=== PATIENT | female | born 1935 | race Caucasian/White ===

== ENCOUNTER → 2017-02-15 | Outpatient (CLI) | payer OTHER, MEDICARE | LOC: FCPNEURO 20:00 | PROVIDERS: ATTEND Psychiatry & Neurology Sleep Medicine | DX: G47.30 Sleep apnea, unspecified (principal) ==

== ENCOUNTER → 2017-07-25 | Outpatient (CLI) | payer OTHER, MEDICARE | LOC: FCPNEURO 20:00 | PROVIDERS: ATTEND Psychiatry & Neurology Sleep Medicine | DX: G47.33 Obstructive sleep apnea (adult) (pediatric) (principal); G47.61 Periodic limb movement disorder ==

== ENCOUNTER 2018-02-13 16:00 | Emergency (ER) | payer OTHER, MEDICARE ==
--- NOTE | 2018-02-13 16:15 | EDPHY ---
H & P Time Seen by Provider: 02/13/18 16:03 HPI/ROS: CHIEF COMPLAINT: Fall HISTORY OF PRESENT ILLNESS: Patient is a 82-year-old female who comes to the emergency department after a mechanical fall. Her friend dropped her off at the store. She tripped in the sidewalk and fell and hit her chin on the ground. Witnesses say She did not lose consciousness but is slightly confused. She has a laceration on her lower lip on the mucosal aspect. She has an abrasion to her chin but no laceration. She denies jaw pain. She denies headache. She denies neck pain. She denies injuries to her extremities. She was ambulatory at the scene. She has a history of type 2 diabetes. She cannot remember her medications. Severity: Moderate Modifying factors: None REVIEW OF SYSTEMS: Constitutional: denies: chills, fever, recent illness, recent injury EENTM: See HPI, denies: blurred vision, double vision, nose congestion Respiratory: denies: cough, shortness of breath Cardiac: denies: chest pain, irregular heart rate, lightheadedness, palpitations Gastrointestinal/Abdominal: denies: abdominal pain, diarrhea, nausea, vomiting, blood streaked stools Genitourinary: denies: dysuria, frequency, hematuria, pain Musculoskeletal: denies: joint pain, muscle pain Skin: See HPI Neurological: denies: headache, numbness, paresthesia, tingling, dizziness, weakness Hematologic/Lymphatic: denies: blood clots, easy bleeding, easy bruising Immunologic/allergic: denies: HIV/AIDS, transplant 10 systems reviewed and negative except as noted EXAM: GENERAL: Well-appearing, well-nourished and in no acute distress. HEAD: Atraumatic, normocephalic. EYES: Pupils equal round and reactive to light, extraocular movements intact, sclera anicteric, conjunctiva are normal. ENT: Laceration 2 cm to mucosal aspect of lower lip. Not through and through. TMs normal, nares patent, oropharynx clear without exudates. Moist mucous membranes. No malocclusion. No missing teeth. The patient does have partial dentures. NECK: Normal range of motion, supple without lymphadenopathy or JVD. LUNGS: Breath sounds clear to auscultation bilaterally and equal. No wheezes rales or rhonchi. HEART: Regular rate and rhythm without murmurs, rubs or gallops. ABDOMEN: Soft, nontender, normoactive bowel sounds. No guarding, no rebound. No masses appreciated. BACK: No CVA tenderness, no spinal tenderness, step-offs or deformities EXTREMITIES: Normal range of motion, no pitting or edema. No clubbing or cyanosis. NEUROLOGICAL: Cranial nerves II through XII grossly intact. Normal speech, normal gait. 5/5 strength, normal movement in all extremities, normal sensation , normal reflexes PSYCH: Normal mood, normal affect. SKIN: Abrasion to chin, no laceration Source: Patient, EMS Exam Limitations: No limitations - Medical/Surgical History Hx Asthma: No Hx Chronic Respiratory Disease: No Hx Diabetes: No Hx Cardiac Disease: No Hx Renal Disease: No Hx Cirrhosis: No Hx Alcoholism: No Hx HIV/AIDS: No Hx Splenectomy or Spleen Trauma: No - Family History Significant Family History: No pertinent family hx - Social History Smoking Status: Never smoked Alcohol Use: Sober Drug Use: None Constitutional: Initial Vital Signs Temperature (C) 36.7 C 02/13/18 16:11 Heart Rate 73 02/13/18 16:11 Respiratory Rate 16 02/13/18 16:11 Blood Pressure 140/74 H 02/13/18 16:11 O2 Sat (%) 92 02/13/18 16:11 O2 Delivery Mode Room Air Allergies/Adverse Reactions: No Known Allergies Allergy (Unverified 02/13/18 16:10) Home Medications: Medication Instructions Recorded Ambien 02/13/18 Insulin Syringe 02/13/18 Medical Decision Making - Diagnostics Imaging Results: Imaging Impressions Cervical Spine CT 02/13/18 16:09 Impression: 1. No acute, displaced cervical spine fracture. 2. If the patient has persistent pain or neurologic deficits, consider cervical spine MRI. Noam Nolasco was notified of these findings by telephone at 4:51 PM on [address] 02/13/18 16:09 Impression: No intracranial hemorrhage or calvarial fracture. Noam Nolasco was notified of these findings by telephone at 4:51 PM on 2017 Imaging: Discussed imaging studies w/ call center recruiter Radiologist Procedures: Procedure: Laceration repair. Verbal consent was obtained from the patient. The 2 cm lip laceration was anesthetized with 1% lidocaine locally infiltrated. The wound was irrigated copiously according to protocol, draped and explored to its base. It was approximately 1/2 cm deep, not through and through. There were no deep structures involved. No tendon, nerve, or vascular injury was identified when explored through full range of motion. No foreign body was identified. The wound was repaired with 5.0 fast-absorbing gut, 2 sutures loosely approximated, interrupted. The wound repair was simple without wound margin revisement or multiple flap alignment. The procedure was performed by myself. A dressing was then placed with sterile gauze. ED Course/Re-evaluation: Patient's head CT and neck CT are reassuring. She tolerated lip laceration repair. No visible dental or jaw injuries pain she is eager to go home before gets dark. We discussed suture care and follow-up. Differential Diagnosis: Partial list of the Differential diagnosis considered include but were not limited to; lip laceration, abrasion, fall, concussion and although unlikely based on the history and physical exam, I also considered head injury, neck injury. I discussed these differential diagnoses and the plan with the patient as well as the usual and expected course. The patient understands that the diagnosis is provisional and that in medicine we are not always correct and that further workup is often warranted. Usual and customary warnings were given. All of the patient's questions were answered. The patient was instructed to return to the emergency department should the symptoms at all worsen or return, otherwise to followup with the physician as we discussed. - Data Points Laboratory Results: Laboratory Results 02/13/18 16:20 02/13/18 16:20 02/13/18 02/13/18 02/13/18 16:20 16:20 16:20 WBC 9.78 10^3/uL H 10^3/uL (3.80-9.50) RBC 5.25 10^6/uL 10^6/uL (4.18-5.33) Hgb 12.8 g/dL g/dL (12.6-16.3) Hct 40.7 % % (38.0-47.0) MCV 77.5 fL L fL (81.5-99.8) MCH 24.4 pg L pg (27.9-34.1) MCHC 31.4 g/dL L g/dL (32.4-36.7) RDW 19.7 % H % (11.5-15.2) Plt Count 289 10^3/uL 10^3/uL (150-400) MPV 10.1 fL fL (8.7-11.7) Neut % (Auto) 48.9 % % (39.3-74.2) Lymph % (Auto) 37.2 % % (15.0-45.0) [place] % (Auto) 9.8 % % (4.5-13.0) Eos % (Auto) 3.1 % % (0.6-7.6) Baso % (Auto) 0.7 % % (0.3-1.7) Nucleat RBC Rel Count 0.0 % % (0.0-0.2) Absolute Neuts (auto) 4.78 10^3/uL 10^3/uL (1.70-6.50) Absolute Lymphs (auto) 3.64 10^3/uL H 10^3/uL (1.00-3.00) Absolute Monos (auto) 0.96 10^3/uL H 10^3/uL (0.30-0.80) Absolute Eos (auto) 0.30 10^3/uL 10^3/uL (0.03-0.40) Absolute Basos (auto) 0.07 10^3/uL 10^3/uL (0.02-0.10) Absolute Nucleated RBC 0.00 10^3/uL 10^3/uL (0-0.01) Immature Gran % 0.3 % % (0.0-1.1) Immature Gran # 0.03 10^3/uL 10^3/uL (0.00-0.10) PT 14.1 SEC SEC (12.0-15.0) INR 1.07 (0.83-1.16) APTT 29.1 SEC SEC (23.0-38.0) Sodium 141 mEq/L mEq/L (135-145) Potassium 4.4 mEq/L mEq/L (3.5-5.2) Chloride 104 mEq/L mEq/L (97-110) Carbon Dioxide 25 mEq/l mEq/l (22-31) Anion Gap 12 mEq/L mEq/L (6-14) BUN 28 mg/dL H mg/dL (7-23) Creatinine 1.2 mg/dL H mg/dL (0.6-1.0) Estimated GFR 43 Glucose 126 mg/dL H mg/dL (70-100) Calcium 9.9 mg/dL mg/dL (8.5-10.4) Ethyl Alcohol < 10 mg/dL mg/dL (0-10) Departure - Departure Disposition: Home, Routine, Self-Care Clinical Impression: Abrasion Concussion Qualifiers: Encounter type: initial encounter Loss of consciousness presence/duration: without LOC Qualified Code(s): S06.0X0A - Concussion without loss of consciousness, initial encounter Lip laceration Qualifiers: Encounter type: initial encounter Qualified Code(s): S01.511A - Laceration without foreign body of lip, initial encounter Condition: Fair Instructions: Laceration (DC), Concussion (ED) Additional Instructions: You have 2 stitches in your lip that should dissolve over the next 3-4 days. If they do not return to have them removed. Referrals: Patient,NotPresent [Unknown] - As per Instructions
[2018-02-13 16:24] LABS: PLATELET COUNT 289 10^3/uL (150-400)
[2018-02-13 16:34] LABS: INR 1.07 (0.83-1.16); PROTIME(PATIENT) 14.1 SEC (12.0-15.0)
[2018-02-13 17:35] VITALS: BP 150/81
== END 2018-02-13 17:35 | disposition home or self-care (01) ==
LOC: EDUNIT#
PROC: 0CQ1XZZ Repair Lower Lip, External Approach (ICD-10-PCS; principal; 2018-02-13)
DX: S01.511A Laceration without foreign body of lip, initial encounter (principal); S00.81XA Abrasion of other part of head, initial encounter; W01.0XXA Fall on same level from slipping, tripping and stumbling without subsequent striking against object, initial encounter; Y92.480 Sidewalk as the place of occurrence of the external cause; Y93.9 Activity, unspecified; Y99.9 Unspecified external cause status
CPT/HCPCS: G0480

== ENCOUNTER → 2018-06-10 | Outpatient (CLI) | payer OTHER, MEDICARE | LOC: BHFA 09:30 | PROVIDERS: ATTEND Internal Medicine Cardiovascular Disease | DX: R94.31 Abnormal electrocardiogram [ECG] [EKG] (principal); N18.3 Chronic kidney disease, stage 3 (moderate); I50.30 Unspecified diastolic (congestive) heart failure | CPT/HCPCS: 78452; 93017; A9500; J2785 ==

== ENCOUNTER 2018-08-05 08:51 | Day surgery (SDC) | payer OTHER, MEDICARE ==
[2018-08-05] MEDS ORDERED: FAMOTIDINE 20 MG TAB PO ONE (08:57)
[2018-08-05] MEDS ORDERED: ASPIRIN EC 325 MG TAB PO ONE (08:57)
[2018-08-05] MEDS ORDERED: DIAZEPAM 5 MG TAB PO ONE (08:57)
[2018-08-05] MEDS ORDERED: NS 1,000 ML IV ONE (08:57)
[2018-08-05] MEDS ORDERED: diphenhydrAMINE 25 MG CAP PO ONE (08:57)
--- NOTE | 2018-08-05 09:33 | PDGENHP ---
History & Physical Chief Complaint: Newly diagnosed cardiomyopathy. History of Present Illness: Newly diagnosed cardiomyopathy without overt symptoms of heart failure. Noninvasive assessment indicates the possibility of significant ischemia/infarction in the territory of the RCA. Pertinent Past, Social, Family History: Metastatic breast cancer currently on Herceptin. Chronic renal insufficiency. Relevant Physical Exam: Alert and oriented x3, clear lung araiza bilaterally, regular rate and rhythm without murmurs gallops or rubs, 2+ radial artery pulses bilaterally, 2+ dorsal pedal pulses Cardiorespiratory Assessment: Stable for right and left heart catheterization.
[2018-08-05 09:43] LABS: PLATELET COUNT 210 10^3/uL (150-400)
[2018-08-05 09:55] LABS: INR 1.15 (0.83-1.16); PROTIME(PATIENT) 14.2 SEC (12.0-15.0)
[2018-08-05] MEDS ORDERED: MIDAZOLAM 2 MG/2 ML VIAL ONE (10:06)
[2018-08-05] MEDS ORDERED: fentaNYL 100 MCG/2 ML INJ ONE (10:06)
[2018-08-05] MEDS ORDERED: IOPAMIDOL (ISOVUE 370) 100 ML BTL IV ONE (10:07)
[2018-08-05] MEDS ORDERED: LIDOCAINE 1% 5 ML SDV ONE (10:07)
--- NOTE | 2018-08-05 11:30 | PDDXCAT ---
Diagnostic Cath Note - . Date: 08/05/18 Engineering Inspection Assistant: Jo Indication: other (Newly diagnosed cardiomyopathy. Abnormal stress MPI indicating a large inferior fixed defect.) - Procedure Access: right groin Procedure: left heart catheterization, coronary angiography, left ventriculogram , right heart catheterization - Materials Left Heart Cath size: 6F Left Heart Cath materials: standard multipack (JL4, JR4, pigtail) Right Heart Cath size: 7F Right Heart Cath materials: PWP catheter - Findings-Left Heart Catheterization LM: Large caliber vessel. Appropriate bifurcation into the LAD and circumflex. Angiographically free of disease. LAD: Large caliber transapical vessel. 3 diagonal branches identified. The 2nd diagonal is small and surgically insignificant. There is ostial tapering of the 3rd diagonal branch to about 30-40%. In the proximal LAD there is a 30% irregular lesion. LCX: Large caliber vessel. There is a small 1st obtuse marginal branch, a large 1st posterolateral branch and a small 2nd posterolateral branch. Luminal irregularities with no obstructive lesions are noted. RCA: Large caliber dominant vessel. The PDA and 2 posterolateral branches are noted. There are luminal irregularities with no obstructive lesions. LVEF: 40-45% with global hypokinesis. - Findings-Right Heart Catheterization RA: 3 mmHg. RV: 33/-3/1 mmHg. PA: 33/6/18 mmHg. 71% saturation. PAOP: 3 mmHg. Complications: None. Estimated blood loss: <50ml Closure method: Angioseal Assessment: 1. Minimal nonobstructive CAD as described above. 2. 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 3. Right heart catheterization indicating volume depletion. Plan: Maximal medical therapy in light of the nonischemic cardiomyopathy. Discontinuation of Herceptin her attending normalization of ejection fraction. Intervention: None.
--- NOTE | 2018-08-07 11:53 | CPEKG ---
Test Reason : OPEN Blood Pressure : / mmHG Vent. Rate : 083 BPM Atrial Rate : 083 BPM P-R Int : 162 ms QRS Dur : 084 ms QT Int : 398 ms P-R-T Axes : 071 -39 024 degrees QTc Int : 468 ms Sinus rhythm Left axis deviation Left ventricular hypertrophy Confirmed by Salty Bond ([id number]) on 08/07/2018 11:53:21 AM Referred By: Marco Osorio Confirmed By:Salty Bond
== END 2018-08-05 15:40 | disposition home or self-care (01) ==
LOC: FCATH 08:51
PROVIDERS: ATTEND Internal Medicine Cardiovascular Disease
DX: I42.9 Cardiomyopathy, unspecified (principal); I25.10 Atherosclerotic heart disease of native coronary artery without angina pectoris; C50.919 Malignant neoplasm of unspecified site of unspecified female breast; E11.22 Type 2 diabetes mellitus with diabetic chronic kidney disease; I12.9 Hypertensive chronic kidney disease with stage 1 through stage 4 chronic kidney disease, or unspecified chronic kidney disease; N18.3 Chronic kidney disease, stage 3 (moderate); Z79.899 Other long term (current) drug therapy
CPT/HCPCS: C1760; J1644; J2250; J3010; Q9967